=== PATIENT | female | born 1940 | race Caucasian/White ===

== ENCOUNTER → 2023-07-27 08:15 | Outpatient (REF) | payer MEDICARE, BC, SELFPAY ==
[2023-07-27 09:32] LABS: % Basophils 0.7 % (0-2); % Eosinophils 1.7 % (0-6); % Immature Granulocytes 0.5 % (0-0.5); % Lymphocytes 32.5 % (20.5-51.1); % Neutrophils 56.6 % (42.2-75.2); Absolute Eosinophils 0.1 10^3/uL (0-0.7); Absolute Monocytes 0.5 10^3/uL (0.1-0.6); Absolute Neutrophils 3.4 10^3/uL (1.4-6.5); Hemoglobin 13.8 g/dL (12.0-16.0); Mean Corp Hgb Conc. 35.4 g/dL (33.0-37.0); Mean Corpuscular Hgb 33.8 pg (27.0-31.0); Mean Corpuscular Volume 95.6 fL (81.0-99.0); Mean Platelet Volume 8.7 fL (7.4-10.4); Nucleated Red Blood Cells % 0 %; Platelet Count 253 10^3/uL (130-400); Red Blood Cell Count 4.08 10^6/uL (4.20-5.40); Red Cell Dist. Width 11.9 % (11.5-14.5)
[2023-07-27 10:46] LABS: ALT (SGPT) 17 U/L (0-35); AST (SGOT) 25 U/L (14-36); Albumin 3.8 g/dl (3.5-5.0); Alkaline Phosphatase 70 U/L (38-126); Blood Urea Nitrogen 21 mg/dl (7-17); Calcium 9.2 mg/dl (8.4-10.2); Carbon Dioxide 28 mmol/L (22-30); Chloride 103 mmol/L (98-107); Glucose 108 mg/dl (70-99); HDL Cholesterol 77 mg/dl; LDL Cholesterol, Calculated 87 mg/dl; Potassium 3.9 mmol/L (3.5-5.1); Sodium 136 mmol/L (135-145); Total Bilirubin 0.8 mg/dl (0.2-1.3); Total Cholesterol 179 mg/dl (50-199); Total Protein 6.7 g/dl (6.3-8.2); Triglyceride 78 mg/dl (10-149); Very Low Density Lipoprotein 15 mg/dl (0-30); eGFR > 60.00
[2023-07-27 10:51] LABS: TSH Reflex To Free T4 5.15 uIU/ml (0.47-4.68)
[2023-07-27 11:20] LABS: Free T4 1.05 ng/dl (0.78-2.19)
[2023-07-27 12:37] LABS: Glycohemoglobin (HgbA1c) 5.5 % (4.0-5.6)
[2023-07-29 10:14] LABS: Intact PTH 93.6 pg/ml (13.6-85.8)
== END ==
LOC: HWLAB 08:15
PROVIDERS: ATTENDING PHYSICIAN Family Medicine
DX: E78.00 Pure hypercholesterolemia, unspecified (principal); I10 Essential (primary) hypertension; M81.0 Age-related osteoporosis without current pathological fracture; R73.01 Impaired fasting glucose; J98.4 Other disorders of lung; K76.0 Fatty (change of) liver, not elsewhere classified; Z00.00 Encounter for general adult medical examination without abnormal findings; Z79.899 Other long term (current) drug therapy; Z78.0 Asymptomatic menopausal state
CPT/HCPCS: 36415; 77080; 80053; 80061; 83036; 83970; 84439; 84443; 85025

== ENCOUNTER → 2023-08-18 10:03 | Outpatient (REF) | payer MEDICARE, BC, SELFPAY ==
[2023-08-18 12:37] LABS: TSH Reflex To Free T4 3.09 uIU/ml (0.47-4.68)
== END ==
LOC: HWLAB 10:03
PROVIDERS: ATTENDING PHYSICIAN Family Medicine
DX: R79.89 Other specified abnormal findings of blood chemistry (principal); I10 Essential (primary) hypertension
CPT/HCPCS: 36415; 84443

== ENCOUNTER → 2024-01-04 11:34 | Outpatient (REF) | payer MEDICARE, BC, SELFPAY ==
[2024-01-04 16:02] LABS: ALT (SGPT) 15 U/L (0-35); AST (SGOT) 25 U/L (14-36); Albumin 3.9 g/dl (3.5-5.0); Alkaline Phosphatase 56 U/L (38-126); Blood Urea Nitrogen 23 mg/dl (7-17); Calcium 9.7 mg/dl (8.4-10.2); Carbon Dioxide 27 mmol/L (22-30); Chloride 102 mmol/L (98-107); Glucose 107 mg/dl (70-99); HDL Cholesterol 68 mg/dl; LDL Cholesterol, Calculated 93 mg/dl; Potassium 4.1 mmol/L (3.5-5.1); Sodium 136 mmol/L (135-145); Total Bilirubin 0.9 mg/dl (0.2-1.3); Total Cholesterol 174 mg/dl (50-199); Total Protein 6.6 g/dl (6.3-8.2); Triglyceride 65 mg/dl (10-149); Very Low Density Lipoprotein 13 mg/dl (0-30); eGFR > 60.00
[2024-01-05 09:11] LABS: Glycohemoglobin (HgbA1c) 5.2 % (4.0-5.6)
[2024-01-06 10:38] LABS: Intact PTH 74.8 pg/ml (13.6-85.8)
== END ==
LOC: HWWDC 11:34
PROVIDERS: ATTENDING PHYSICIAN Family Medicine
DX: Z12.31 Encounter for screening mammogram for malignant neoplasm of breast (principal); Z78.0 Asymptomatic menopausal state; I10 Essential (primary) hypertension; R73.01 Impaired fasting glucose
CPT/HCPCS: 36415; 80053; 80061; 83036; 83970

== ENCOUNTER → 2024-02-08 10:05 | Outpatient (REF) | payer MEDICARE, BC, SELFPAY | LOC: RCS 10:05 | PROVIDERS: ATTENDING PHYSICIAN Family Medicine | DX: R06.09 Other forms of dyspnea (principal) | CPT/HCPCS: 93017; 93350 ==

== ENCOUNTER → 2024-03-19 15:37 | Outpatient (REF) | payer MEDICARE, BC, SELFPAY | LOC: HWRCS 15:37 | PROVIDERS: ATTENDING PHYSICIAN Family Medicine | DX: R06.09 Other forms of dyspnea (principal); I35.8 Other nonrheumatic aortic valve disorders; I05.8 Other rheumatic mitral valve diseases | CPT/HCPCS: 93306 ==

== ENCOUNTER → 2024-05-16 09:06 | Outpatient (REF) | payer MEDICARE, BC, SELFPAY ==
[2024-05-16 11:17] LABS: % Basophils 0.6 % (0-2); % Eosinophils 1.9 % (0-6); % Immature Granulocytes 0.4 % (0-0.5); % Lymphocytes 28.6 % (20.5-51.1); % Monocytes 8.6 % (1.7-9.3); % Neutrophils 59.9 % (42.2-75.2); Absolute Eosinophils 0.1 10^3/uL (0-0.7); Absolute Lymphocytes 1.5 10^3/uL (1.2-3.4); Absolute Monocytes 0.5 10^3/uL (0.1-0.6); Absolute Neutrophils 3.2 10^3/uL (1.4-6.5); Hematocrit 39.4 % (37.0-47.0); Hemoglobin 13.6 g/dL (12.0-16.0); Mean Corp Hgb Conc. 34.5 g/dL (33.0-37.0); Mean Corpuscular Volume 101.3 fL (81.0-99.0); Nucleated Red Blood Cells % 0 %; Platelet Count 208 10^3/uL (130-400); Red Blood Cell Count 3.89 10^6/uL (4.20-5.40); Red Cell Dist. Width 12.6 % (11.5-14.5); White Blood Cell Count 5.3 10^3/uL (4.8-10.8)
[2024-05-16 12:17] LABS: ALT (SGPT) 18 U/L (0-35); AST (SGOT) 23 U/L (14-36); Alkaline Phosphatase 45 U/L (38-126); Blood Urea Nitrogen 21 mg/dl (7-17); Calcium 9.4 mg/dl (8.4-10.2); Carbon Dioxide 28 mmol/L (22-30); Chloride 105 mmol/L (98-107); Glucose 95 mg/dl (70-99); HDL Cholesterol 89 mg/dl; LDL Cholesterol, Calculated 59 mg/dl; Potassium 4.1 mmol/L (3.5-5.1); Sodium 141 mmol/L (135-145); Total Bilirubin 0.9 mg/dl (0.2-1.3); Total Cholesterol 161 mg/dl (50-199); Total Protein 6.9 g/dl (6.3-8.2); Triglyceride 66 mg/dl (10-149); Very Low Density Lipoprotein 13 mg/dl (0-30); eGFR > 60.00
[2024-05-16 13:42] LABS: Glycohemoglobin (HgbA1c) 5.1 % (4.0-5.6)
[2024-05-16 13:51] LABS: TSH Reflex To Free T4 5.92 uIU/ml (0.47-4.68)
[2024-05-16 14:48] LABS: Free T4 1.09 ng/dl (0.78-2.19)
[2024-05-18 08:59] LABS: Intact PTH 84.8 pg/ml (13.6-85.8)
== END ==
LOC: HWLAB 09:06
PROVIDERS: ATTENDING PHYSICIAN Family Medicine
DX: R53.83 Other fatigue (principal); Z13.29 Encounter for screening for other suspected endocrine disorder; R73.01 Impaired fasting glucose; Z13.6 Encounter for screening for cardiovascular disorders; E34.9 Endocrine disorder, unspecified
CPT/HCPCS: 36415; 80053; 80061; 83036; 83970; 84439; 84443; 85025

== ENCOUNTER → 2024-08-02 11:06 | Outpatient (REF) | payer MEDICARE, BC, SELFPAY ==
[2024-08-02 16:02] LABS: ALT (SGPT) 18 U/L (0-35); AST (SGOT) 23 U/L (14-36); Albumin 4.3 g/dl (3.5-5.0); Alkaline Phosphatase 63 U/L (38-126); Blood Urea Nitrogen 23 mg/dl (7-17); Calcium 9.8 mg/dl (8.4-10.2); Carbon Dioxide 30 mmol/L (22-30); Chloride 98 mmol/L (98-107); Glucose 107 mg/dl (70-99); Potassium 3.3 mmol/L (3.5-5.1); Sodium 135 mmol/L (135-145); Total Bilirubin 1.4 mg/dl (0.2-1.3); Total Protein 6.9 g/dl (6.3-8.2); eGFR > 60.00
== END ==
LOC: HWLAB 11:06
PROVIDERS: ATTENDING PHYSICIAN Internal Medicine Interventional Cardiology; FAMILY PHYSICIAN Family Medicine
DX: I10 Essential (primary) hypertension (principal)
CPT/HCPCS: 36415; 80053

== ENCOUNTER → 2024-11-14 09:41 | Outpatient (REF) | payer MEDICARE, BC, SELFPAY ==
[2024-11-14 12:21] LABS: % Basophils 0.7 % (0-2); % Eosinophils 0.9 % (0-6); % Immature Granulocytes 0.4 % (0-0.5); % Lymphocytes 34.2 % (20.5-51.1); % Monocytes 8.5 % (1.7-9.3); % Neutrophils 55.3 % (42.2-75.2); Absolute Eosinophils 0.1 10^3/uL (0-0.7); Absolute Lymphocytes 1.9 10^3/uL (1.2-3.4); Absolute Monocytes 0.5 10^3/uL (0.1-0.6); Absolute Neutrophils 3.2 10^3/uL (1.4-6.5); Hematocrit 36.4 % (37.0-47.0); Hemoglobin 12.7 g/dL (12.0-16.0); Mean Corp Hgb Conc. 34.9 g/dL (33.0-37.0); Mean Corpuscular Hgb 34.8 pg (27.0-31.0); Mean Corpuscular Volume 99.7 fL (81.0-99.0); Mean Platelet Volume 8.8 fL (7.4-10.4); Nucleated Red Blood Cells % 0 %; Platelet Count 248 10^3/uL (130-400); Red Blood Cell Count 3.65 10^6/uL (4.20-5.40); Red Cell Dist. Width 11.9 % (11.5-14.5); White Blood Cell Count 5.7 10^3/uL (4.8-10.8)
[2024-11-14 12:43] LABS: ALT (SGPT) 14 U/L (0-35); AST (SGOT) 19 U/L (14-36); Albumin 3.9 g/dl (3.5-5.0); Alkaline Phosphatase 130 U/L (38-126); Blood Urea Nitrogen 21 mg/dl (7-17); Calcium 9.8 mg/dl (8.4-10.2); Carbon Dioxide 30 mmol/L (22-30); Chloride 106 mmol/L (98-107); Glucose 98 mg/dl (70-99); HDL Cholesterol 66 mg/dl; LDL Cholesterol, Calculated 85 mg/dl; Potassium 3.8 mmol/L (3.5-5.1); Sodium 142 mmol/L (135-145); Total Bilirubin 0.9 mg/dl (0.2-1.3); Total Cholesterol 166 mg/dl (50-199); Total Protein 6.8 g/dl (6.3-8.2); Triglyceride 76 mg/dl (10-149); Very Low Density Lipoprotein 15 mg/dl (0-30); eGFR > 60.00
[2024-11-14 12:54] LABS: TSH Reflex To Free T4 3.06 uIU/ml (0.47-4.68)
[2024-11-14 14:01] LABS: Glycohemoglobin (HgbA1c) 5.2 % (4.0-5.6)
[2024-11-15 15:00] LABS: Intact PTH 77.4 pg/ml (13.6-85.8)
== END ==
LOC: HWLAB 09:41
PROVIDERS: ATTENDING PHYSICIAN Family Medicine
DX: R73.01 Impaired fasting glucose (principal); Z13.6 Encounter for screening for cardiovascular disorders; E34.9 Endocrine disorder, unspecified; R53.83 Other fatigue; Z13.29 Encounter for screening for other suspected endocrine disorder
CPT/HCPCS: 36415; 80053; 80061; 83036; 83970; 84443; 85025

== ENCOUNTER → 2025-03-03 11:07 | Outpatient (REF) | payer MEDICARE, BC, SELFPAY | LOC: HWWDC 11:07 | PROVIDERS: ATTENDING PHYSICIAN Family Medicine | DX: Z12.31 Encounter for screening mammogram for malignant neoplasm of breast (principal) | CPT/HCPCS: 77063; 77067 ==